=== PATIENT | female | born 1940 | race Caucasian/White ===

== ENCOUNTER 2018-05-09 15:39 | Inpatient (IN) | payer OTHER ==
[~2018-05-09] VITALS: Ht 162.6 cm; Wt 73.7 kg
[2018-05-09 15:45] VITALS: Ht 162.6 cm; Wt 73.7 kg
[2018-05-09 18:22] LABS: PLATELET COUNT 200 x10^3mcL (130-400); RED CELL DISTRIBUTION WIDTH 12.8 % (11.5-14.5)
[2018-05-09 18:31] LABS: CALCIUM 8.9 mg/dL (8.5-10.1); CARBON DIOXIDE 28.6 mmol/L (21-32); CHLORIDE SERUM 104 mmol/L (98-107); GLUCOSE SERUM 103 mg/dL (74-106); POTASSIUM SERUM 4.7 mmol/L (3.5-5.1); SODIUM SERUM 142 mmol/L (136-145)
[2018-05-09 18:33] LABS: BASOPHIL % 2.9 % (0-2)
[2018-05-09 18:37] LABS: ALBUMIN 3.9 g/dL (3.4-5.0); ALKALINE PHOSPHATASE 59 U/L (46-116); ALT/SGPT 16 U/L (14-59); AST/SGOT 13 U/L (15-37); BILIRUBIN TOTAL 0.63 mg/dL (0.20-1.00); LIPASE 164 IU/L (73-393); TOTAL PROTEIN, SERUM 7.6 g/dL (6.4-8.2)
[2018-05-09 18:39] LABS: UA SPECIFIC GRAVITY 1.025 (1.005-1.035); microscopic required? YES; urine erythrocyte 1+ (NEGATIVE)
[2018-05-09] MEDS ORDERED: SYNTHROID0.075 MG PO (20:40)
[2018-05-09] MEDS ORDERED: PROAIR HFA8.5 GM IH (20:40)
[2018-05-09] MEDS ORDERED: ALENDRONATE SOD70 M2 PO (20:41)
[2018-05-09] MEDS ORDERED: SIMVASTATIN20 M1 PO (20:41)
[2018-05-09] MEDS ORDERED: AROMASIN25 MG PO (20:41)
[2018-05-09] MEDS ORDERED: WELSR PO (20:41)
[2018-05-09] MEDS ORDERED: OMEPRAZOLE40 M1 (20:42)
[2018-05-09] MEDS ORDERED: COZAAR25 M1 PO (20:42)
[2018-05-09] MEDS ORDERED: ASPIR 8181 MG PO (20:42)
[2018-05-09] MEDS ORDERED: TEMAZEPAM15 MG PO (20:42)
[2018-05-09 21:02] LABS: MAGNESIUM 2.2 mg/dL (1.8-2.4); PHOSPHOROUS 3.6 mg/dL (2.5-4.9)
[2018-05-09 21:04] LABS: CHOLESTEROL/HDL RATIO 1.7
[2018-05-09 21:59] VITALS: BP 105/55
[2018-05-10 02:19] VITALS: BP 105/55
[2018-05-10 06:34] LABS: CALCIUM 8.9 mg/dL (8.5-10.1); CARBON DIOXIDE 28.7 mmol/L (21-32); CHLORIDE SERUM 106 mmol/L (98-107); CREATININE SERUM 2.2 mg/dL (0.6-1.0); GLUCOSE SERUM 118 mg/dL (74-106); MAGNESIUM 2.4 mg/dL (1.8-2.4); PHOSPHOROUS 3.9 mg/dL (2.5-4.9); POTASSIUM SERUM 4.9 mmol/L (3.5-5.1); SODIUM SERUM 143 mmol/L (136-145)
[2018-05-10 06:38] LABS: PLATELET COUNT 208 x10^3mcL (130-400); RED CELL DISTRIBUTION WIDTH 12.9 % (11.5-14.5)
[2018-05-10 06:51] LABS: BASOPHIL % 0 % (0-2)
[2018-05-10 09:59] VITALS: BP 108/71
[2018-05-10 18:23] VITALS: BP 136/75
[2018-05-10 21:37] VITALS: BP 128/77
[2018-05-11 05:28] VITALS: BP 104/67
[2018-05-11 06:48] LABS: BASOPHIL % 0.4 % (0-2); PLATELET COUNT 208 x10^3mcL (130-400); RED CELL DISTRIBUTION WIDTH 12.6 % (11.5-14.5)
[2018-05-11 07:04] LABS: CALCIUM 8.3 mg/dL (8.5-10.1); CARBON DIOXIDE 26.4 mmol/L (21-32); CHLORIDE SERUM 100 mmol/L (98-107); CREATININE SERUM 1.6 mg/dL (0.6-1.0); GLUCOSE SERUM 144 mg/dL (74-106); MAGNESIUM 1.9 mg/dL (1.8-2.4); PHOSPHOROUS 3.5 mg/dL (2.5-4.9); POTASSIUM SERUM 4.1 mmol/L (3.5-5.1); SODIUM SERUM 133 mmol/L (136-145)
[2018-05-11 09:05] VITALS: BP 128/80
[2018-05-11 12:20] VITALS: BP 119/68
[2018-05-11 18:03] VITALS: BP 104/64
[2018-05-11 21:29] VITALS: BP 104/64
[2018-05-11 21:59] VITALS: BP 129/72
== END 2018-05-11 23:03 | disposition short-term general hospital (02) | DRG 391 ==
LOC: ED 15:39 → MU 20:15
PROVIDERS: Emergency Medicine; ADMIT Internal Medicine
DX: K59.00 Constipation, unspecified (principal); N17.0 Acute kidney failure with tubular necrosis; J96.10 Chronic respiratory failure, unspecified whether with hypoxia or hypercapnia; K56.7 Ileus, unspecified; I10 Essential (primary) hypertension; E03.9 Hypothyroidism, unspecified; C50.919 Malignant neoplasm of unspecified site of unspecified female breast; J44.9 Chronic obstructive pulmonary disease, unspecified; Z99.81 Dependence on supplemental oxygen; Z68.26 Body mass index [BMI] 26.0-26.9, adult; Z87.891 Personal history of nicotine dependence
CPT/HCPCS: 83880; 94150; A9698; J0696; J1200; J1885; J2060; J2270; J2405; J2765; J7030; J7620; Q0092; Q9967